=== PATIENT | female | born 1945 | race Caucasian/White ===

== ENCOUNTER 2016-04-03 10:29 | Outpatient (CLI) | payer OTHER ==
[~2016-04-03 10:29] MED LIST: ASPIRIN81 M1 PO; CEPHALEXIN500 MG PO; CHLORTHALIDONE25 MG PO; ELIQUIS2.5 MG PO; LOPRESSOR25 MG PO; LOVASTATIN20 MG PO; METOPROLOL TART25 MG PO; PRINIVIL5 MG PO; SPIRONOLACTONE25 MG PO; VITAMIN D-31000 UNIT PO
--- NOTE | 2016-04-03 11:16 | DIAGNOSTIC IMAGING REPORT ---
PROCEDURE: DEXA BONE DENSITY STUDY CLINICAL INDICATION: SCREENING COMPARISON: DEXA scan 04/24/2004 FINDINGS: LUMBAR SPINE: Bone mineral density 0.853, T-score -1.8, osteopenia (previously bone mineral density 0.927, T-score -1.1, 7.9% bone mineral density loss). LEFT HIP: Bone mineral density 0.823, T-score -1.0, normal (previously bone mineral density 0.950, T-score 0.1, 13.4% bone mineral density loss) . LEFT FEMORAL NECK: Bone mineral density 0.629, T-score -2.0, osteopenia (previously bone mineral density 0.800, T-score -0.4, 21.4% bone mineral density loss). (T score greater or equal to -1.0 to: NORMAL) (T score from -1.1 to -2.4: OSTEOPENIA) (T score ess than or equal to -2.5: OSTEOPOROSIS) IMPRESSION: 1. Lumbar spine osteopenia with 7.9% bone mineral density loss 2. Left hip osteopenia with femoral neck 21.4% bone mineral density loss 3. 10-year fracture risk: Major osteoporotic fracture 19%, hip fracture 7.2%
--- NOTE | 2016-04-03 14:43 | DIAGNOSTIC IMAGING REPORT ---
PROCEDURE: XR BARIUM SWALLOW INDICATION: History of Mcdaniel's esophagus. The TECHNIQUE: Double contrast study. Fluoroscopy time, 0.8 minutes; 548.44 mGy. 42 fluoroscopic images (including cine fluoroscopy of the esophagus). COMPARISON: Comparison is made to CT thorax on 11/08/2013. FINDINGS: There is moderate aspiration with thin liquids. Because of this, the study was limited and terminated early. There is moderate distention of the thoracic esophagus with rapid tapering of the distal esophagus at the gastroesophageal junction. This is associated pooling of barium and residual ingested material in the distal esophagus. IMPRESSION: 1. Moderate aspiration with thin liquids. Modified barium swallow under the supervision of speech pathology is recommended to further evaluate. 2. Moderate distention of the thoracic esophagus with tapering of the distal esophagus. Findings are compatible with achalasia (versus reflux stricture). 3. Findings discussed with Dr. Rodriguez. 4. Findings discussed with Dr. Schmidt (as requested).
[2016-04-10] MEDS ORDERED: METFORMIN HCL500 MG PO (12:49)
[2016-08-14] MEDS ORDERED: VITAMIN E200 UNIT PO (13:41)
== END 2016-04-03 23:00 ==
LOC: XR SRH 10:29
DX: K22.70 Barrett's esophagus without dysplasia (principal); M85.89 Other specified disorders of bone density and structure, multiple sites; R93.3 Abnormal findings on diagnostic imaging of other parts of digestive tract

== ENCOUNTER 2016-04-14 05:46 | Day surgery (SDC) | payer OTHER ==
[~2016-04-14] VITALS: Ht 157.5 cm; Wt 71.8 kg
[~2016-04-14 05:46] MED LIST changes: +METFORMIN HCL500 MG PO
--- NOTE | 2016-04-14 09:09 | Provider's Discharge Care Plan ---
Problem, Goal, Plan Problem List 1. S/P EGD WITH SAVORY DILATION TO 19 MM Goals: Therapeutic intervention Instructions: Follow up as directed, Take meds as directed
--- NOTE | 2016-04-14 09:09 | Provider's Discharge Care Plan ---
Problem, Goal, Plan Problem List 1. S/P EGD WITH SAVORY DILATION TO 19 MM Goals: Therapeutic intervention Instructions: Follow up as directed, Take meds as directed
--- NOTE | 2016-04-14 09:46 | DIAGNOSTIC IMAGING REPORT ---
PROCEDURE: XR FLUORO ENDOSCOPE DILATION INDICATION: EGD DILATION TECHNIQUE: C-arm fluoroscopy provided to Dr. Rodriguez for therapeutic esophageal dilation Fluoroscopy time 1.21 minutes 19.4 mGy). COMPARISON: Barium swallow dated 04/03/2016 FINDINGS: C-arm fluoroscopy provided to Dr. Rodriguez for therapeutic esophageal dilation IMPRESSION: 1. C-arm fluoroscopy for therapeutic esophageal dilation (performed by Dr. Rodriguez
--- NOTE | 2016-04-14 09:56 | OPERATIVE REPORT ---
DATE OF SURGERY: 04/14/2016 SURGEON: Angelika Rodriguez III, MD [employer] PRODUCER: None. PREOPERATIVE DIAGNOSIS: 1. Dysphagia POSTOPERATIVE DIAGNOSIS: 1. Questionable distal esophageal stenosis. ANESTHESIA: General endotracheal. INDICATIONS: The patient is a 70-year-old female with a history of dysphagia since 1998. Recent barium swallow shows moderate aspiration of thin liquids, moderate distention of thoracic esophagus with tapering of the distal esophagus, compatible with achalasia versus reflux stricture, scheduled for dilation. SURGICAL FINDINGS: Questionable narrowing of the EG junction at approximately 40 cm from dental incisors. The gastric mucosa, duodenal bulb, and duodenum appear grossly normal. SURGICAL TECHNIQUE: The patient was brought to the operating room and placed in the dorsal supine position where she underwent general endotracheal anesthesia. After proper anesthesia had taken effect, the posterior pharynx was sprayed with Cetacaine spray and an Olympus fiberoptic video flexible upper GI endoscope passed easily down the posterior pharynx. The esophagus easily intubated. The scope passed easily down the esophagus, through the EG junction, into the gastric lumen and eventually into the second and third portion of the duodenum. On withdrawing the scope, the aforementioned findings noted. The scope was withdrawn into the gastric lumen and retroflexed with a good view of the cardia, fundus, and EG junction from below. Through the biopsy channel, a floppy tipped J-wire was passed. The scope was withdrawn, leaving the floppy tipped J-wire into the gastric lumen. Under fluoroscopic guidance, the esophagus was sequentially and serially dilated using dilators, beginning with 11 mm and working our way up to 19 mm, leaving the last [address] for 2 and 3 minutes respectively. The Savary dilator and wire were withdrawn as a unit. This was then followed by the passage of the Olympus fiberoptic video flexible upper scope. The scope passed easily down the esophagus. There is no evidence of mucosal damage. The scope passed easily through the EG junction and retroflexed, good view of EG junction from below. The scope withdrawn, carefully inspecting the esophagus. The esophagus appeared to be intact. The scope was completely withdrawn. The patient tolerated the procedure well and was transferred to the recovery room in stable condition. There were no intraoperative or anesthetic complications.
[2016-04-14 10:52] VITALS: BP 106/49
[2016-08-14] MEDS ORDERED: VITAMIN E200 UNIT PO (13:41)
== END 2016-04-14 11:29 | disposition home or self-care (01) ==
LOC: OR SRH 05:46 → SCU SRH 06:10 → OR SRH 07:30
PROVIDERS: Specialist
PROC: 0D738ZZ Dilation of Lower Esophagus, Via Natural or Artificial Opening Endoscopic (ICD-10-PCS; principal; 2016-04-14 07:30)
DX: R13.10 Dysphagia, unspecified (principal); Z87.19 Personal history of other diseases of the digestive system; I48.91 Unspecified atrial fibrillation; Z79.01 Long term (current) use of anticoagulants; I10 Essential (primary) hypertension; I69.998 Other sequelae following unspecified cerebrovascular disease; E11.9 Type 2 diabetes mellitus without complications; Z79.84 Long term (current) use of oral hypoglycemic drugs
CPT/HCPCS: 29229; 29240; 50004; 60001; 70002; 80102; 83526

== ENCOUNTER 2016-08-18 11:29 | Day surgery (SDC) | payer OTHER ==
[~2016-08-18] VITALS: Ht 157.5 cm; Wt 68.2 kg
[~2016-08-18 11:29] MED LIST changes: +VITAMIN E200 UNIT PO
--- NOTE | 2016-08-18 13:01 | NUR ---
PREOP INSTRUCTIONS GIVEN TO PATIENT AND HER . QUESTIONS ANSWERED. PATIENT VERBALIZES UNDERSTANDING. CONSENT CONFIRMED. BS 101 NO PREOP MEDICATIONS GIVEN. RESTING COMFORTABLY. IN ROOM. KB
--- NOTE | 2016-08-18 15:35 | Provider's Discharge Care Plan ---
Problem, Goal, Plan Problem List 1. Status post colonoscopy Goals: Screening Instructions: Follow up as needed, Take meds as directed, high-fiber diet
--- NOTE | 2016-08-18 15:35 | Provider's Discharge Care Plan ---
Problem, Goal, Plan Problem List 1. Status post colonoscopy Goals: Screening Instructions: Follow up as needed, Take meds as directed, high-fiber diet
--- NOTE | 2016-08-18 15:40 | Operative Report ---
Operative Report Date of Surgery: 08/18/16 Preoperate Diagnosis: screening colonoscopy Postoperative Diagnosis: normal colonoscopy Surgeon: Balwinder Rodriguez MD Dry Goods Inspector Surgeon: none Procedure Performed: Colonoscopy Anesthesia: Total intravenous anesthesia Indications: A 70-year-old female whose last colonoscopy was approximately 10 years ago. She is asymptomatic. There is no family history of Crohn disease or ulcerative colitis. Patient did have an aunt with colon cancer. FINDINGS: Normal appearing cecum, ascending, transverse, descending, and sigmoid colon. Normal appearing rectal wall. Surgical Technique: Patient was brought to the operating room. Patient was placed in the left lateral decubitus position. Patient was administered TIVA by anesthesia. Once anesthesia had taken effect digital rectal examination was performed. No masses or stenosis was appreciated. This was then followed by the passage of a fiberoptic video flexible Olympus colonoscope. The scope was then passed without difficulty and the cecum was visualized. The cecum was identified by anatomical landmarks and anterior abdominal wall ballottement. On withdrawing the scope the aforementioned findings were noted. The scope was then retroflexed and a good view of the rectal wall obtained. The scope was then completely withdrawn. Patient tolerated procedure well. Patient was transferred to the recovery room in stable condition. There were no intraoperative or anesthetic complications.
--- NOTE | 2016-08-18 16:16 | NUR ---
PT IS AWAKE AND ALERT. PT STATES SHE IS WARM AND COMFORTABLE. PT DENIES PAIN OR NAUSEA. PT PASSES FLATUS. VSS. TALKED TO PT IN PACU. QUESTIONS ANSWERED. REPORT GIVEN TO RN.
[2016-08-18 16:27] VITALS: BP 104/54
[2016-08-18 16:30] VITALS: BP 112/50
[2016-08-18 16:45] VITALS: BP 107/70
--- NOTE | 2016-08-18 17:55 | NUR ---
1710 Discharged to home, abmulatory using walker accompanied by , Able to drink oral fluids and up to br
== END 2016-08-18 17:30 | disposition home or self-care (01) ==
LOC: SCU SRH 11:29 → OR SRH 11:29
PROVIDERS: Specialist
PROC: 0DJD8ZZ Inspection of Lower Intestinal Tract, Via Natural or Artificial Opening Endoscopic (ICD-10-PCS; principal; 2016-08-18 13:45)
DX: Z12.11 Encounter for screening for malignant neoplasm of colon (principal); E11.9 Type 2 diabetes mellitus without complications; Z79.84 Long term (current) use of oral hypoglycemic drugs; Z79.01 Long term (current) use of anticoagulants; I48.91 Unspecified atrial fibrillation
CPT/HCPCS: 29229; 29240; 50004; 60001; 83526